=== PATIENT | male | born 1990 | race Caucasian/White ===

== ENCOUNTER 2020-08-01 07:02 | Emergency (ER) | payer OTHER ==
[~2020-08-01] VITALS: Ht 172.7 cm; Wt 76.2 kg
[2020-08-01 07:16] VITALS: BP 156/89; Ht 172.7 cm; Wt 76.2 kg
== END 2020-08-01 08:20 | disposition home or self-care (01) ==
LOC: ED 07:02
DX: R10.9 Unspecified abdominal pain (principal); F10.10 Alcohol abuse, uncomplicated; F14.10 Cocaine abuse, uncomplicated
CPT/HCPCS: Q0162